=== PATIENT | male | born 1965 | race African-American/Black ===

== ENCOUNTER 2019-07-14 16:25 | Emergency (ER) | payer MEDICAID ==
[~2019-07-14] VITALS: Ht 170.2 cm; Wt 69.0 kg
[2019-07-14 17:45] VITALS: BP 107/72
== END 2019-07-14 17:57 | disposition left against medical advice (07) ==
LOC: ER 16:25
DX: M79.674 Pain in right toe(s) (principal); Z53.21 Procedure and treatment not carried out due to patient leaving prior to being seen by health care provider

== ENCOUNTER 2019-07-15 06:34 | Emergency (ER) | payer MEDICAID ==
[~2019-07-15] VITALS: Ht 170.2 cm; Wt 68.0 kg
[2019-07-15 06:41] VITALS: BP 108/65
== END 2019-07-15 07:56 | disposition left against medical advice (07) ==
LOC: ER 07:12
DX: S90.111A Contusion of right great toe without damage to nail, initial encounter (principal); K21.9 Gastro-esophageal reflux disease without esophagitis; F17.200 Nicotine dependence, unspecified, uncomplicated; X58.XXXA Exposure to other specified factors, initial encounter; Y93.9 Activity, unspecified; Y92.9 Unspecified place or not applicable
CPT/HCPCS: 99281

== ENCOUNTER 2021-03-31 14:03 | Inpatient (IN) | payer MEDICAID ==
[~2021-03-31] VITALS: Ht 170.2 cm; Wt 73.0 kg
[2021-03-31 18:56] LABS: HEMATOCRIT. 43.8 % (42.0-52.0); HEMOGLOBIN. 14.9 g/dL (14.0-18.0); MEAN CORPUSCULAR HEMOGLOBIN 30.7 pg (28.0-32.0); MEAN CORPUSCULAR VOLUME 90.3 fL (80.0-94.0); MEAN PLATELET VOLUME 7.7 fl (7.4-10.4); PLATELET 196 x1000/uL (130-400); RED BLOOD CELL COUNT 4.85 mill/uL (4.7-6.1); RED CELL DISTRIBUTION WIDTH 14.2 % (11.6-14.6)
[2021-03-31 19:02] LABS: CHLORIDE 107 mEq/L (98-107)
[2021-03-31 19:59] LABS: PLATELET ESTIMATE NORMAL
[2021-03-31] MEDS ORDERED: PROCHLORPERAZINE 10MG/2ML VIAL IV PRN (20:00)
[2021-03-31] MEDS ORDERED: ASPIRIN 325MG EC TABLET PO ONE (20:00)
[2021-03-31] MEDS ORDERED: DIPHENHYDRAMINE 50MG/ML VIAL IV ONE (20:00)
[2021-03-31] MEDS ORDERED: HYDROCODONE/ACETAMINOPHEN 5/325MG TABLET PO PRN (22:30)
[2021-03-31] MEDS: ENOXAPARIN 40MG/0.4ML SYR SUBCUT SCH (22:30)
[2021-03-31] MEDS ORDERED: MORPHINE SULFATE 2 MG/ML CPJ (NOT FOR IM USE) IV PRN (22:30)
[2021-03-31] MEDS ORDERED: CLONIDINE 0.1MG TABLET PO PRN (22:30)
[2021-03-31] MEDS ORDERED: LORAZEPAM 2MG/ML CPJ IV PRN (22:30)
[2021-03-31] MEDS: ONDANSETRON HCL 4MG/2ML INJ IV PRN (22:47)
[2021-04-01] VITALS (7 sets, daily range): BP systolic 94–114; BP diastolic 60–64
[2021-04-01] MEDS: ENOXAPARIN 40MG/0.4ML SYR SUBCUT SCH ×2 (00:25→21:38)
[2021-04-01 05:33] LABS: CHLORIDE 110 mEq/L (98-107)
[2021-04-01 05:42] LABS: PHOSPHORUS 2.2 mg/dL (2.5-4.9)
[2021-04-01 05:45] LABS: CREATINE KINASE 99 IU/L (39-308)
[2021-04-01 05:47] LABS: CREATINE KINASE MB FRACTION < 1.0 ng/mL (0.5-3.6)
[2021-04-01 06:57] LABS: HEMATOCRIT. 41.2 % (42.0-52.0); HEMOGLOBIN. 14.4 g/dL (14.0-18.0); MEAN CORPUSCULAR HEMOGLOBIN 31.3 pg (28.0-32.0); MEAN CORPUSCULAR VOLUME 89.6 fL (80.0-94.0); MEAN PLATELET VOLUME 8.4 fl (7.4-10.4); PLATELET 184 x1000/uL (130-400); RED CELL DISTRIBUTION WIDTH 13.9 % (11.6-14.6)
[2021-04-01] MEDS: ASPIRIN 81MG EC TABLET PO SCH (07:41)
[2021-04-01] MEDS: ONDANSETRON HCL 4MG/2ML INJ IV PRN ×2 (07:41→18:52)
[2021-04-01] MEDS ORDERED: REGADENOSON 0.4 MG/5 ML IV NR (13:30)
[2021-04-01] MEDS ORDERED: IPRATROPIUM/ALBUTEROL 0.5-3(2.5)MG/3ML NEB HHN PRN (14:30)
[2021-04-01] MEDS: ACETAMINOPHEN 325MG TABLET PO PRN (17:58)
[2021-04-01 20:53] LABS: CREATINE KINASE 93 IU/L (39-308)
[2021-04-01 20:54] LABS: CREATINE KINASE MB FRACTION < 1.0 ng/mL (0.5-3.6)
[2021-04-01] MEDS: ATORVASTATIN CALCIUM 10MG TABLET PO SCH (21:38)
[2021-04-01] MEDS ORDERED: AZITHROMYCIN 500 MG in DEXT 5% WATER 250 ML IV SCH (23:00)
[2021-04-01] MEDS: CHOLECALCIFEROL (D3) 1000 UNIT TABLET PO SCH (23:16)
[2021-04-01] MEDS: ZINC SULFATE 220 MG ( 50 ) CAPSULE PO SCH (23:16)
[2021-04-02] LABS: PLATELET ESTIMATE NORMAL
[2021-04-02 00:10] VITALS: BP 122/48
[2021-04-02] MEDS: CEFTRIAXONE 1,000 MG in DEXTROSE 5% WATER 50 ML IV SCH ×2 (01:15→21:45)
[2021-04-02 04:00] VITALS: BP 102/59
[2021-04-02 08:00] VITALS: BP 109/86
[2021-04-02] MEDS: ASPIRIN 81MG EC TABLET PO SCH (08:47)
[2021-04-02] MEDS: CHOLECALCIFEROL (D3) 1000 UNIT TABLET PO SCH (08:47)
[2021-04-02] MEDS: ZINC SULFATE 220 MG ( 50 ) CAPSULE PO SCH (08:47)
[2021-04-02 11:26] LABS: BASOPHILS % 0.4 % (0.0-2.0); EOSINOPHILS % 0.2 % (0.0-5.0); HEMATOCRIT. 44.2 % (42.0-52.0); HEMOGLOBIN. 15.6 g/dL (14.0-18.0); LYMPHOCYTES % 27.3 % (20.0-50.0); MEAN CORPUSCULAR HEMOGLOBIN 31.3 pg (28.0-32.0); MEAN PLATELET VOLUME 8.2 fl (7.4-10.4); MONOCYTES % 14.8 % (2.0-8.0); NEUTROPHILS % 57.3 % (40.0-76.0); PLATELET 194 x1000/uL (130-400); RED BLOOD CELL COUNT 4.97 mill/uL (4.7-6.1); RED CELL DISTRIBUTION WIDTH 13.8 % (11.6-14.6)
[2021-04-02 12:11] LABS: CHLORIDE 105 mEq/L (98-107)
[2021-04-02] MEDS: AZITHROMYCIN 500 MG TABLET PO SCH (18:25)
[2021-04-02 20:00] VITALS: BP 100/64
[2021-04-02] MEDS: ATORVASTATIN CALCIUM 10MG TABLET PO SCH (21:45)
[2021-04-02] MEDS: ENOXAPARIN 40MG/0.4ML SYR SUBCUT SCH (21:46)
[2021-04-03] VITALS (7 sets, daily range): BP systolic 92–109; BP diastolic 59–67
[2021-04-03 07:10] LABS: BASOPHILS % 0.4 % (0.0-2.0); EOSINOPHILS % 0.3 % (0.0-5.0); HEMATOCRIT. 46.5 % (42.0-52.0); LYMPHOCYTES % 31.2 % (20.0-50.0); MEAN CORPUSCULAR HEMOGLOBIN 30.9 pg (28.0-32.0); MEAN CORPUSCULAR VOLUME 89.8 fL (80.0-94.0); MEAN PLATELET VOLUME 8.2 fl (7.4-10.4); MONOCYTES % 13.1 % (2.0-8.0); PLATELET 216 x1000/uL (130-400); RED BLOOD CELL COUNT 5.17 mill/uL (4.7-6.1); RED CELL DISTRIBUTION WIDTH 13.8 % (11.6-14.6)
[2021-04-03 07:35] LABS: CHLORIDE 105 mEq/L (98-107)
[2021-04-03] MEDS: ZINC SULFATE 220 MG ( 50 ) CAPSULE PO SCH (08:43)
[2021-04-03] MEDS: ACETAMINOPHEN 325MG TABLET PO PRN ×2 (08:43→17:15)
[2021-04-03] MEDS: CHOLECALCIFEROL (D3) 1000 UNIT TABLET PO SCH (08:43)
[2021-04-03] MEDS: ASPIRIN 81MG EC TABLET PO SCH (08:43)
[2021-04-03] MEDS: AZITHROMYCIN 500 MG TABLET PO SCH (11:46)
[2021-04-03] MEDS: DEXT 5%/0.45% NACL 1000ML 1,000 ML IV SCH (13:08)
[2021-04-03] MEDS: ATORVASTATIN CALCIUM 10MG TABLET PO SCH ×2 (21:02→21:57)
[2021-04-03] MEDS: CEFTRIAXONE 1,000 MG in DEXTROSE 5% WATER 50 ML IV SCH (21:56)
[2021-04-03] MEDS: ENOXAPARIN 40MG/0.4ML SYR SUBCUT SCH ×2 (21:57→22:10)
[2021-04-04] MEDS: DEXT 5%/0.45% NACL 1000ML 1,000 ML IV SCH (01:21)
[2021-04-04 04:00] VITALS: BP 107/69
[2021-04-04] MEDS: ACETAMINOPHEN 325MG TABLET PO PRN ×2 (04:15→08:21)
[2021-04-04 06:53] LABS: HEMATOCRIT. 45.1 % (42.0-52.0); HEMOGLOBIN. 15.9 g/dL (14.0-18.0); MEAN CORPUSCULAR HEMOGLOBIN 31.4 pg (28.0-32.0); MEAN CORPUSCULAR VOLUME 89.2 fL (80.0-94.0); MEAN PLATELET VOLUME 7.9 fl (7.4-10.4); PLATELET 197 x1000/uL (130-400); RED BLOOD CELL COUNT 5.05 mill/uL (4.7-6.1); RED CELL DISTRIBUTION WIDTH 13.7 % (11.6-14.6)
[2021-04-04 06:57] LABS: CHLORIDE 107 mEq/L (98-107)
[2021-04-04 08:00] VITALS: BP 103/66
[2021-04-04] MEDS: ASPIRIN 81MG EC TABLET PO SCH (08:18)
[2021-04-04] MEDS: CHOLECALCIFEROL (D3) 1000 UNIT TABLET PO SCH (08:18)
[2021-04-04] MEDS: ZINC SULFATE 220 MG ( 50 ) CAPSULE PO SCH (08:19)
[2021-04-04] MEDS ORDERED: AZITHROMYCIN 500 MG in DEXT 5% WATER 250 ML IV SCH (11:00)
[2021-04-04 12:00] VITALS: BP 115/64
[2021-04-04] MEDS ORDERED: AZITHROMYCIN 500 MG TABLET PO NR (12:00)
[2021-04-04] MEDS: SODIUM CHLORIDE 0.9% INJ 3ML FLUSH IVF SCH ×2 (13:33→20:52)
[2021-04-04 15:54] LABS: PLATELET ESTIMATE NORMAL
[2021-04-04 16:00] VITALS: BP 101/63
[2021-04-04 20:00] VITALS: BP 110/64
[2021-04-04] MEDS: ATORVASTATIN CALCIUM 10MG TABLET PO SCH (20:44)
[2021-04-04] MEDS: CEFTRIAXONE 1,000 MG in DEXTROSE 5% WATER 50 ML IV SCH (20:52)
[2021-04-04] MEDS: ENOXAPARIN 40MG/0.4ML SYR SUBCUT SCH (20:53)
[2021-04-05] VITALS: BP 117/76
[2021-04-05 04:00] VITALS: BP 106/67
[2021-04-05] MEDS: SODIUM CHLORIDE 0.9% INJ 3ML FLUSH IVF SCH (06:00)
[2021-04-05 08:00] VITALS: BP 109/69
[2021-04-05] MEDS: CHOLECALCIFEROL (D3) 1000 UNIT TABLET PO SCH (08:20)
[2021-04-05] MEDS: ZINC SULFATE 220 MG ( 50 ) CAPSULE PO SCH (08:20)
[2021-04-05] MEDS: ASPIRIN 81MG EC TABLET PO SCH (08:21)
[2021-04-05] MEDS ORDERED: AZITHROMYCIN 500 MG TABLET PO SCH (09:00)
[2021-04-05 09:02] VITALS: BP 120/91
== END 2021-04-05 10:35 | disposition home or self-care (01) | DRG 203 ==
LOC: ER 14:03 → 5WST 21:24 → EDBEDREQTM 21:25 → EDBEDREQ 21:25 → SUPCPDRO 22:20 → ENRESERV 22:26 → 7WST 04-01 21:11
PROVIDERS: ADMIT Internal Medicine Nephrology; ATTEND Internal Medicine Nephrology
DX: M94.0 Chondrocostal junction syndrome [Tietze] (principal); U07.1 COVID-19; E83.39 Other disorders of phosphorus metabolism; K21.9 Gastro-esophageal reflux disease without esophagitis; I10 Essential (primary) hypertension; E78.5 Hyperlipidemia, unspecified; F17.210 Nicotine dependence, cigarettes, uncomplicated; G43.909 Migraine, unspecified, not intractable, without status migrainosus; R00.1 Bradycardia, unspecified; J44.9 Chronic obstructive pulmonary disease, unspecified; Z80.7 Family history of other malignant neoplasms of lymphoid, hematopoietic and related tissues; Z82.49 Family history of ischemic heart disease and other diseases of the circulatory system; Z98.41 Cataract extraction status, right eye; Z98.42 Cataract extraction status, left eye; Z88.0 Allergy status to penicillin; Z71.6 Tobacco abuse counseling
CPT/HCPCS: 36415; 71045; 80048; 80053; 80061; 82550; 82553; 83735; 83880; 84100; 84443; 84484; 85025; 87426; 93005; 99285; C1893; J0456; J0696; J1650; J2270; J2405; J7040; J7060; J7070; U0003; U0005

== ENCOUNTER 2021-09-29 12:05 | Emergency (ER) | payer MEDICAID ==
[~2021-09-29] VITALS: Ht 170.2 cm; Wt 70.0 kg
[2021-09-29 12:45] LABS: BASOPHILS % 0.4 % (0.0-2.0); CHLORIDE 110 mEq/L (98-107); EOSINOPHILS % 1.1 % (0.0-5.0); HEMATOCRIT. 47.1 % (42.0-52.0); HEMOGLOBIN. 15.4 g/dL (14.0-18.0); LYMPHOCYTES % 26.2 % (20.0-50.0); MEAN CORPUSCULAR HEMOGLOBIN 29.5 pg (28.0-32.0); MEAN CORPUSCULAR VOLUME 90.2 fL (80.0-94.0); MEAN PLATELET VOLUME 7.7 fl (7.4-10.4); MONOCYTES % 13.3 % (2.0-8.0); PLATELET 316 x1000/uL (130-400); RED BLOOD CELL COUNT 5.22 mill/uL (4.7-6.1); RED CELL DISTRIBUTION WIDTH 14.3 % (11.6-14.6)
[2021-09-29 17:25] VITALS: BP 123/65
== END 2021-09-29 17:26 | disposition home or self-care (01) ==
LOC: ER 13:39
DX: R07.89 Other chest pain (principal); F12.10 Cannabis abuse, uncomplicated; Z90.49 Acquired absence of other specified parts of digestive tract
CPT/HCPCS: 36415; 71045; 80053; 84484; 85025; 93005; 99285